=== PATIENT | male | born 1935 | race Caucasian/White ===

== ENCOUNTER → 2018-05-17 | Outpatient (CLI) | payer MEDICARE, BC | LOC: GMAE 12:36 | PROVIDERS: ATTEND Family Medicine | DX: R97.20 Elevated prostate specific antigen [PSA] (principal); E78.5 Hyperlipidemia, unspecified ==

== ENCOUNTER → 2018-11-22 | Outpatient (CLI) | payer MEDICARE, BC | LOC: GMAE 10:29 | PROVIDERS: ATTEND Family Medicine | DX: R97.20 Elevated prostate specific antigen [PSA] (principal) ==

== ENCOUNTER → 2019-05-24 | Outpatient (CLI) | payer MEDICARE, BC | LOC: GMAE 16:41 | PROVIDERS: ATTEND Family Medicine | DX: R97.20 Elevated prostate specific antigen [PSA] (principal) ==

== ENCOUNTER → 2019-11-07 | Outpatient (CLI) | payer MEDICARE, BC | LOC: GMAE 10:39 | PROVIDERS: ATTEND Family Medicine | DX: R97.20 Elevated prostate specific antigen [PSA] (principal); E78.5 Hyperlipidemia, unspecified; Z79.899 Other long term (current) drug therapy ==

== ENCOUNTER → 2020-03-26 | Outpatient (CLI) | payer MEDICARE, BC | LOC: GMAE 15:25 | PROVIDERS: ATTEND Family Medicine | DX: R97.20 Elevated prostate specific antigen [PSA] (principal) ==

== ENCOUNTER → 2020-11-15 | Outpatient (CLI) | payer MEDICARE, BC | LOC: GMAE 12:45 | PROVIDERS: ATTEND Family Medicine | DX: R97.20 Elevated prostate specific antigen [PSA] (principal); Z79.899 Other long term (current) drug therapy ==